=== PATIENT | male | born 1970 | race Caucasian/White ===

== ENCOUNTER 2024-10-13 19:05 | Emergency (ER) | payer BC ==
[2024-10-13] MEDS: Diphtheria,Pertussis(Acell),Tetanus Vaccine 0.5 ML Syringe IM ONE (20:10)
[2024-10-13] MEDS: Lidocaine 1% 10 ML MDV INJECT ONE (20:10)
== END 2024-10-13 20:33 | disposition home or self-care (01) ==
LOC: JD.ED 19:05
DX: S61.512A Laceration without foreign body of left wrist, initial encounter (principal); Z23 Encounter for immunization; W01.0XXA Fall on same level from slipping, tripping and stumbling without subsequent striking against object, initial encounter
CPT/HCPCS: 12001; 90471; 90715; 99282-25; J3490